=== PATIENT | female | born 1960 | race Caucasian/White ===

== ENCOUNTER 2018-02-19 18:05 | Emergency (ER) | payer OTHER ==
[~2018-02-19] VITALS: Ht 162.6 cm; Wt 68.0 kg
[2018-02-19 19:26] VITALS: BP 164/74
--- NOTE | 2018-02-19 19:28 | RADIOLOGY REPORT ---
EXAMINATION: XR HAND, RIGHT CLINICAL INFORMATION: Pain. COMPARISON: None TECHNIQUE: PA, lateral, and oblique views of the right hand. FINDINGS: There is a subtle fracture along the dorsal base of the distal phalanx of the second digit, best seen on the lateral projection. There is mild regional soft tissue swelling. No dislocation is seen. Bony mineralization is normal. The joint spaces are maintained. IMPRESSION: Subtle nondisplaced fracture through the dorsal base of the distal phalanx of the second digit with DIP joint intra-articular extension. No dislocation. Mild soft tissue swelling.
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
--- NOTE | 2018-02-19 19:47 | RADIOLOGY REPORT ---
EXAMINATION: XR MANDIBLE CLINICAL INFORMATION: Fracture. Fall onto chin. Laceration and pain. COMPARISON: No relevant prior imaging. TECHNIQUE: 5 views of the mandible were obtained. 8 images total. FINDINGS: There is no acute fracture or dislocation. Paranasal sinuses are well-aerated. Globes are symmetric. Visualized portions of the upper cervical spine are unremarkable. IMPRESSION: Unremarkable mandibular radiographs. No evidence of acute fracture or dislocation.
== END 2018-02-19 20:03 ==
LOC: ERH 18:05
DX: S62.660A Nondisplaced fracture of distal phalanx of right index finger, initial encounter for closed fracture (principal); S01.81XA Laceration without foreign body of other part of head, initial encounter; W10.1XXA Fall (on)(from) sidewalk curb, initial encounter; Y93.01 Activity, walking, marching and hiking; Y92.480 Sidewalk as the place of occurrence of the external cause
CPT/HCPCS: 70110; 73130-RT